=== PATIENT | male | born 1965 | race Caucasian/White ===

== ENCOUNTER → 2021-01-05 18:52 | Outpatient (CLI) | payer OTHER, SELFPAY ==
[2021-01-05 19:15] LABS: Basophils # 0.1 K/mm3 (0-0.2); Basophils % 1.1 % (0.1-2.0); Eosinophils # 0.2 K/mm3 (0.0-0.4); Eosinophils % 2.3 % (0.1-12.0); Hematocrit 52.8 % (42.0-52.0); Lymphocytes # 1.5 K/mm3 (0.7-4.5); Lymphocytes % 19.6 % (10-50); Mean Corpuscular HGB Conc 34.2 g/dL (31.8-35.4); Mean Corpuscular Hemoglobin 32.7 pg (27.0-31.2); Mean Corpuscular Volume 95.7 fl (80-94); Mean Platelet Volume 8.7 fl (7.4-10.4); Monocytes # 0.5 K/mm3 (0.1-1.0); Monocytes % 6.4 % (1.7-9.3); Neutrophils # 5.5 K/mm3 (1.8-7.8); Neutrophils % 70.8 % (37.0-80.0); Platelet Count 272 K/mm3 (142-424); Red Blood Count 5.52 M/mm3 (4.60-6.20); Red Cell Distribution Width 13.6 % (11.5-17.5); White Blood Count 7.7 K/mm3 (4.8-10.8)
[2021-01-05 19:33] LABS: Alanine Aminotransferase 72 U/L (12-78); Albumin Level 4.7 g/dl (3.5-5.0); Albumin/Globulin Ratio 1.4 (1.1-1.8); Alkaline Phosphatase 91 U/L (38-126); Aspartate Amino Transferase 50 U/L (17-59); Bilirubin,Total 0.6 mg/dl (0.2-1.3); Blood Urea Nitrogen 12 mg/dl (9-20); Calcium 9.5 mg/dl (8.4-10.2); Carbon Dioxide 25 mmol/L (22.0-30.0); Chloride 105 mmol/L (98-107); Chol/HDL Ratio 5.9 (1-3.5); Cholesterol 226 mg/dl (140-200); Estimated Glomerular Filt Rate 140 ml/min (>60); GFR (African American) 169 ML/MIN (>60); Globulin 3.3 g/dL (1.3-3.2); Glucose 112 mg/dl (74-100); HDL Cholesterol 38 mg/dl (40-60); Sodium 139 mmol/L (136-145); Triglycerides 227 mg/dl (30-150); VLDL Cholesterol 45 mg/dL (0-40)
[2021-01-05 19:44] LABS: Direct LDL Cholesterol 155.85 mg/dL (100-129)
[2021-01-05 19:50] LABS: Free T4 (Free Thyroxine) 1.03 ng/dl (0.78-2.19)
[2021-01-05 19:51] LABS: 25-OH Vitamin D, Total 39.4 ng/mL (30-100)
[2021-01-05 20:04] LABS: Thyroid Stimulating Hormone 1.55 uIU/mL (0.465-4.68)
== END ==
PROVIDERS: Visit Provider Emergency Medicine
DX: R53.83 Other fatigue (principal); E55.9 Vitamin D deficiency, unspecified; I10 Essential (primary) hypertension
CPT/HCPCS: 80053; 80061; 82306; 84439; 84443; 85025

== ENCOUNTER 2023-05-21 19:36 | Emergency (ER) | payer OTHER, SELFPAY ==
[2023-05-21] VITALS (12 sets, daily range): BP systolic 190–212; BP diastolic 118–134; PULSE 100–116; RESP 16–20; TEMP 36.8; O2SAT 90–95; BMI 36.0
--- NOTE | 2023-05-21 19:44 | PC.NURSE ---
swab obtained and sent to lab
[2023-05-21 19:48] LABS: Coronavirus 19, PCR Not Detected (NotDetected); Influenza B, PCR Not Detected (NotDetected)
--- NOTE | 2023-05-21 19:59 | HMH.EDGENADL ---
Discharge Plan Disposition Patient Disposition: Home, Self-Care Condition: Good Prescriptions Prescriptions: New amlodipine 10 mg tablet 10 mg PO DAILY Qty: 30 0RF No Action atorvastatin 10 mg tablet 10 mg PO HS Qty: 90 0RF amlodipine 10 mg tablet 10 mg PO QHS Qty: 90 0RF Referrals Follow up/Referrals: Michael Aldrich DO [Primary Care Provider] - See instructions Harshad Alaniz DO [Staff Physician] - See instructions Clinical Impressions Clinical Impression: Influenza A, Accelerated essential hypertension Stand Alone Forms Stand Alone Forms: Work/School Release Discharge ED Provider: Deloris Esquivel General Adult HPI <NEETA River - Last Filed: 05/21/23 22:04> General Chief complaint: Upper Respiratory Infection Stated complaint: cough, fever Time Seen by Provider: 05/21/23 19:45 Mode of Arrival: Family Vehicle Source of Information: Patient Limitations: No Limitations Description of Symptoms (Recalled from ER Triage Doc. by RN): 57 yo male presents cc of cough x 2 weeks; vss. emv 15. History of Present Illness HPI narrative: Patient presents for report of a nonproductive cough for approximately 7 to 10 days however he began developing a high fever today. He reports it was over 100 at home. He denies chest pain shortness of breath hemoptysis hematochezia melena nausea vomiting diarrhea. Initially patient significantly hypertensive on presentation however he is a former patient of Dr. Cabrales and has not establish care with a new PCP since Dr. Pak's stop seeing new patients. He was previously on amlodipine 10 mg once a day. Denies headache and essentially is asymptomatic according to him. Related Data Previous Rx's Medication Instructions Recorded amlodipine 10 mg tablet 10 mg PO QHS #90 tabs 05/11/21 atorvastatin 10 mg tablet 10 mg PO HS #90 tabs 05/11/21 amlodipine 10 mg tablet 10 mg PO DAILY #30 tabs 05/21/23 Allergies Allergy/AdvReac Type Severity Reaction Status Date / Time lisinopril AdvReac Intermediate Cough Verified 05/11/21 09:05 PFS <NEETA River - Last Filed: 05/21/23 22:04> FOR[facility]LY [facility], [facility] Disclaimer: The information contained in this section may have been updated after the patient was seen, as this information can be updated by other users. Social History Smoking Status: Unknown if ever smoked alcohol intake: current substance use type: denies use current occupational status: employed Travel in the last 8 weeks: None household members: family housing: house <NEETA River - Last Filed: 05/21/23 22:04> ROS Obtained: Yes Systems reviewed as appropriate & no additional complaints except as documented Physical Exam <NEETA River - Last Filed: 05/21/23 22:04> General General appearance: alert and in no apparent distress Head Head exam: atraumatic and normal inspection Eye Eye exam: Present normal appearance, PERRL and EOMI ENT ENT exam: Present normal exam, normal oropharynx and mucous membranes moist Neck Neck exam: Present normal inspection, full ROM and trachea midline; Absent lymphadenopathy Chest Chest inspection: Present normal inspection and symmetric chest wall rise Respiratory Respiratory exam: Present normal lung sounds bilaterally; Absent respiratory distress, wheezes or accessory muscle use Cardiovascular Cardiovascular exam: Present regular rate, normal rhythm, normal heart sounds, +S1 and +S2 Abdominal Exam Abdominal exam: Present soft and normal bowel sounds; Absent tenderness, guarding or rebound Extremities Exam Extremities exam: Present normal inspection and full ROM Neurological Exam Neurological exam: Present alert and oriented X3 Psychiatric Psychiatric exam: Present normal affect and normal mood Skin Skin exam: Present warm, dry and normal color Medical Decision Making <NEETA River - Last Filed: 05/21/23 22:04> Medical Records Medical records reviewed: Yes I reviewed the patient's medical records. Esvin Inquiry Pt receiving controlled substance: No Vital Signs: 05/21/23 19:44 05/21/23 21:53 05/21/23 19:45 Temperature 98.2 F 98.3 F Temperature Source Oral Oral Pulse Rate 100 H 113 H Pulse Rate [Right Brachial] 116 H Respiratory Rate 16 20 Blood Pressure 196/122 H 205/126 H Blood Pressure [Right Arm] 197/132 H Blood Pressure Mean 148 Blood Pressure Mean [Right Arm] 153 Blood Pressure Source Automatic Cuff Blood Pressure Source [Right Arm] Automatic Cuff Blood Pressure Position Sitting Blood Pressure Position [Right Arm] Sitting 02 Sat by Pulse Oximetry 95 92 L Oxygen Delivery Method Room Air Room Air 05/21/23 20:00 05/21/23 20:15 05/21/23 20:30 Temperature Temperature Source Pulse Rate 113 H 111 H 111 H Pulse Rate [Right Brachial] Respiratory Rate Blood Pressure 207/127 H 202/118 H 212/126 H Blood Pressure [Right Arm] Blood Pressure Mean 153 151 148 Blood Pressure Mean [Right Arm] Blood Pressure Source Blood Pressure Source [Right Arm] Blood Pressure Position Blood Pressure Position [Right Arm] 02 Sat by Pulse Oximetry 92 L 92 L 92 L Oxygen Delivery Method 05/21/23 20:45 05/21/23 21:00 05/21/23 21:15 Temperature Temperature Source Pulse Rate 107 H 109 H 109 H Pulse Rate [Right Brachial] Respiratory Rate Blood Pressure 190/130 H 203/134 H 190/124 H Blood Pressure [Right Arm] Blood Pressure Mean 147 154 148 Blood Pressure Mean [Right Arm] Blood Pressure Source Blood Pressure Source [Right Arm] Blood Pressure Position Blood Pressure Position [Right Arm] 02 Sat by Pulse Oximetry 91 L 90 L 90 L Oxygen Delivery Method 05/21/23 21:18 05/21/23 21:30 05/21/23 21:45 Temperature Temperature Source Pulse Rate 104 H 103 H 102 H Pulse Rate [Right Brachial] Respiratory Rate Blood Pressure 204/124 H 205/120 H 196/122 H Blood Pressure [Right Arm] Blood Pressure Mean 143 Blood Pressure Mean [Right Arm] Blood Pressure Source Blood Pressure Source [Right Arm] Blood Pressure Position Blood Pressure Position [Right Arm] 02 Sat by Pulse Oximetry 91 L 91 L 90 L Oxygen Delivery Method Lab Data Lab results reviewed: Yes I reviewed the patient's lab results. Lab Results 05/21/23 19:40: SARS-CoV-2 (PCR) Not detected, Influenza A Untype (PCR) Detected A, Influenza Type B (PCR) Not detected 05/21/23 20:23: WBC 7.1, RBC 5.11, Hgb 17.1, Hct 52.0, MCV 101.7 H, MCH 33.4 H, MCHC 32.9, RDW 13.6, Plt Count 198, MPV 7.9, Neut % (Auto) 70.6, Lymph % (Auto) 16.1, Aiken % (Auto) 9.5 H, Eos % (Auto) 2.5, Baso % (Auto) 1.2, Neut # (Auto) 5.0, Lymph # (Auto) 1.1, Aiken # (Auto) 0.7, Eos # (Auto) 0.2, Baso # (Auto) 0.1, Sodium 138, Potassium 3.6, Chloride 105, Carbon Dioxide 23, Anion Gap 13.6, BUN 11, Creatinine 0.80, Estimated Creat Clear 150, Estimated GFR 100, Est GFR ( Amer) 121, Glucose 103 H, Calcium 9.0 05/21/23 20:23 05/21/23 20:23 Orders (Tests/Meds): ED MEDICATIONS Discontinued Medications Generic Name Dose Route Start Last Admin Trade Name Geovani PRN Reason Stop Dose Admin Acetaminophen 1,000 mg 05/21/23 20:13 05/21/23 20:29 Acetaminophen 500mg Tab PO 05/21/23 20:14 1,000 mg ONCE ONE Administration Dexamethasone Sodium Phosphate 10 mg 05/21/23 20:13 05/21/23 20:28 Dexamethasone 4mg/Ml 1ml Vial IM 05/21/23 20:14 Not Given ONCE ONE Dexamethasone Sodium Phosphate 10 mg 05/21/23 20:26 05/21/23 20:29 Dexamethasone 4mg/Ml 1ml Vial IV 05/21/23 20:27 10 mg ONCE ONE Administration Ketorolac Tromethamine 30 mg 05/21/23 20:13 05/21/23 20:28 Ketorolac 30mg/Ml Vial IM 05/21/23 20:14 Not Given ONCE ONE Ketorolac Tromethamine 30 mg 05/21/23 20:28 05/21/23 20:30 Ketorolac 30mg/Ml Vial IV 05/21/23 20:29 30 mg ONCE ONE Administration ORDERS Category Date Time Status Chest XR -- portable [XR chest portable] Stat Exams 05/21/23 20:13 Completed BMP [Basic Metabolic Panel] Stat Lab 05/21/23 20:23 Completed CBC w/Auto Diff [Complete Blood Count Auto Diff] Stat Lab 05/21/23 20:23 Completed Rapid PCR Covid and Flu A/B Stat Lab 05/21/23 19:40 Completed Medical Decision Narrative: In summary patient is a 57-year-old male who presents to the emergency department for evaluation of cough and fever. Patient is hypertensive but asymptomatic upon arrival, and currently afebrile. Physical exam is nonfocal with no acute findings including normal breath sounds normal heart sounds clear and equal breath sounds without adventitious sounds no headache. Patient is a former client of Dr. Pak's and has not had refills of his hypertensive medication since his PCP stopped seeing patients and has not establish care with a new one. Additionally patient has been taking significant amounts of [id number] cold and flu preparations to try to treat his cough. Today he developed a fever that remains nonproductive.. Differential diagnosis includes hypertensive emergency versus therapeutic misadventure versus viral or bacterial respiratory infection. Initial workup will be conducted with hematologic labs chest x-ray flu and COVID swabs. Initial interventions include Tylenol Toradol Decadron. Initial workup reviewed by me shows normal CBC CMP without any derangements and is nonactionable. Normal interpretation of his plain film chest x-ray shows no acute process. His flu swab was positive for influenza A. Patient still remain asymptomatically hypertensive. I discussed with the patient possible options including admission for hypertensive control versus referral to a PCP and also for me refilling his amlodipine. Patient reported feeling comfortable with restarting his amlodipine as it was controlling it before. For now I will refer him to a local primary care provider and call him in a 30-day supply of his amlodipine. Patient verbalized understanding and agreement via shared decision making. Patient agreed to return to the emergency department if his blood pressure continues to remain high after initiation of amlodipine or as needed.. <Deloris Esquivel, DO - Last Filed: 05/22/23 00:02> Vital Signs: 05/21/23 19:44 05/21/23 21:53 05/21/23 19:45 Temperature 98.2 F 98.3 F Temperature Source Oral Oral Pulse Rate 100 H 113 H Pulse Rate [Right Brachial] 116 H Respiratory Rate 16 20 Blood Pressure 196/122 H 205/126 H Blood Pressure [Right Arm] 197/132 H Blood Pressure Mean 148 Blood Pressure Mean [Right Arm] 153 Blood Pressure Source Automatic Cuff Blood Pressure Source [Right Arm] Automatic Cuff Blood Pressure Position Sitting Blood Pressure Position [Right Arm] Sitting 02 Sat by Pulse Oximetry 95 92 L Oxygen Delivery Method Room Air Room Air 05/21/23 20:00 05/21/23 20:15 05/21/23 20:30 Temperature Temperature Source Pulse Rate 113 H 111 H 111 H Pulse Rate [Right Brachial] Respiratory Rate Blood Pressure 207/127 H 202/118 H 212/126 H Blood Pressure [Right Arm] Blood Pressure Mean 153 151 148 Blood Pressure Mean [Right Arm] Blood Pressure Source Blood Pressure Source [Right Arm] Blood Pressure Position Blood Pressure Position [Right Arm] 02 Sat by Pulse Oximetry 92 L 92 L 92 L Oxygen Delivery Method 05/21/23 20:45 05/21/23 21:00 05/21/23 21:15 Temperature Temperature Source Pulse Rate 107 H 109 H 109 H Pulse Rate [Right Brachial] Respiratory Rate Blood Pressure 190/130 H 203/134 H 190/124 H Blood Pressure [Right Arm] Blood Pressure Mean 147 154 148 Blood Pressure Mean [Right Arm] Blood Pressure Source Blood Pressure Source [Right Arm] Blood Pressure Position Blood Pressure Position [Right Arm] 02 Sat by Pulse Oximetry 91 L 90 L 90 L Oxygen Delivery Method 05/21/23 21:18 05/21/23 21:30 05/21/23 21:45 Temperature Temperature Source Pulse Rate 104 H 103 H 102 H Pulse Rate [Right Brachial] Respiratory Rate Blood Pressure 204/124 H 205/120 H 196/122 H Blood Pressure [Right Arm] Blood Pressure Mean 143 Blood Pressure Mean [Right Arm] Blood Pressure Source Blood Pressure Source [Right Arm] Blood Pressure Position Blood Pressure Position [Right Arm] 02 Sat by Pulse Oximetry 91 L 91 L 90 L Oxygen Delivery Method Lab Data Lab Results 05/21/23 19:40: SARS-CoV-2 (PCR) Not detected, Influenza A Untype (PCR) Detected A, Influenza Type B (PCR) Not detected 05/21/23 20:23: WBC 7.1, RBC 5.11, Hgb 17.1, Hct 52.0, MCV 101.7 H, MCH 33.4 H, MCHC 32.9, RDW 13.6, Plt Count 198, MPV 7.9, Neut % (Auto) 70.6, Lymph % (Auto) 16.1, Aiken % (Auto) 9.5 H, Eos % (Auto) 2.5, Baso % (Auto) 1.2, Neut # (Auto) 5.0, Lymph # (Auto) 1.1, Aiken # (Auto) 0.7, Eos # (Auto) 0.2, Baso # (Auto) 0.1, Sodium 138, Potassium 3.6, Chloride 105, Carbon Dioxide 23, Anion Gap 13.6, BUN 11, Creatinine 0.80, Estimated Creat Clear 150, Estimated GFR 100, Est GFR ( Amer) 121, Glucose 103 H, Calcium 9.0 Orders (Tests/Meds): ED MEDICATIONS Discontinued Medications Generic Name Dose Route Start Last Admin Trade Name Geovani PRN Reason Stop Dose Admin Acetaminophen 1,000 mg 05/21/23 20:13 05/21/23 20:29 Acetaminophen 500mg Tab PO 05/21/23 20:14 1,000 mg ONCE ONE Administration Dexamethasone Sodium Phosphate 10 mg 05/21/23 20:13 05/21/23 20:28 Dexamethasone 4mg/Ml 1ml Vial IM 05/21/23 20:14 Not Given ONCE ONE Dexamethasone Sodium Phosphate 10 mg 05/21/23 20:26 05/21/23 20:29 Dexamethasone 4mg/Ml 1ml Vial IV 05/21/23 20:27 10 mg ONCE ONE Administration Ketorolac Tromethamine 30 mg 05/21/23 20:13 05/21/23 20:28 Ketorolac 30mg/Ml Vial IM 05/21/23 20:14 Not Given ONCE ONE Ketorolac Tromethamine 30 mg 05/21/23 20:28 05/21/23 20:30 Ketorolac 30mg/Ml Vial IV 05/21/23 20:29 30 mg ONCE ONE Administration ORDERS Category Date Time Status Chest XR -- portable [XR chest portable] Stat Exams 05/21/23 20:13 Completed BMP [Basic Metabolic Panel] Stat Lab 05/21/23 20:23 Completed CBC w/Auto Diff [Complete Blood Count Auto Diff] Stat Lab 05/21/23 20:23 Completed Rapid PCR Covid and Flu A/B Stat Lab 05/21/23 19:40 Completed Medical Decision Narrative: In summary patient is a 57-year-old male who presents to the emergency department for evaluation of cough and fever. Patient is hypertensive but asymptomatic upon arrival, and currently afebrile. Physical exam is nonfocal with no acute findings including normal breath sounds normal heart sounds clear and equal breath sounds without adventitious sounds no headache. Patient is a former client of Dr. Pak'monica and has not had refills of his hypertensive medication since his PCP stopped seeing patients and has not establish care with a new one. Additionally patient has been taking significant amounts of [id number] cold and flu preparations to try to treat his cough. Today he developed a fever that remains nonproductive.. Differential diagnosis includes hypertensive emergency versus therapeutic misadventure versus viral or bacterial respiratory infection. Initial workup will be conducted with hematologic labs chest x-ray flu and COVID swabs. Initial interventions include Tylenol Toradol Decadron. Initial workup reviewed by me shows normal CBC CMP without any derangements and is nonactionable. Normal interpretation of his plain film chest x-ray shows no acute process. His flu swab was positive for influenza A. Patient still remain asymptomatically hypertensive. I discussed with the patient possible options including admission for hypertensive control versus referral to a PCP and also for me refilling his amlodipine. Patient reported feeling comfortable with restarting his amlodipine as it was controlling it before. For now I will refer him to a local primary care provider and call him in a 30-day supply of his amlodipine. Patient verbalized understanding and agreement via shared decision making. Patient agreed to return to the emergency department if his blood pressure continues to remain high after initiation of amlodipine or as needed.. I was consulted by the QUENTIN, and we discussed the complexity of the problems being addressed. I approved the treatment and management plan for this patient's care in the emergency department, thus performing a substantive portion of the medical decision making. Deloris Esquivel, DO Critical Care <NEETA River - Last Filed: 05/21/23 22:04> Critical Care Time Critical Care Time: No
--- NOTE | 2023-05-21 20:13 | XR_ITS ---
PROCEDURE INFORMATION: Exam: XR Chest Exam date and time: 05/21/2023 8:21 PM Age: 57 years old Clinical indication: Cough; Additional info: Cough for 7 days, fever TECHNIQUE: Imaging protocol: Radiologic exam of the chest. Views: 1 view. COMPARISON: ABDPELW/O CT ABD PELVIS W/O CONTRAST 01/20/2017 7:55 PM FINDINGS: Lungs: Mild bibasilar scarring or atelectasis. Lungs are otherwise clear. Pleural spaces: Unremarkable. No pleural effusion. No pneumothorax. Heart/Mediastinum: Unremarkable. No cardiomegaly. Bones/joints: Unremarkable. IMPRESSION: Bibasilar scarring or atelectasis. No other acute findings.
[2023-05-21] MEDS: DEXAMETHASONE 4MG/ML 1ML VIAL 10 MG IV (20:29)
[2023-05-21] MEDS: ACETAMINOPHEN 500MG TAB 1000 MG PO (20:29)
[2023-05-21] MEDS: KETOROLAC 30MG/ML VIAL 30 MG IV (20:30)
[2023-05-21 20:35] LABS: Influenza A, PCR Detected (NotDetected)
[2023-05-21 20:37] LABS: Basophils # 0.1 K/mm3 (0-0.2); Basophils % 1.2 % (0.1-2.0); Eosinophils # 0.2 K/mm3 (0.0-0.4); Eosinophils % 2.5 % (0.1-12.0); Hemoglobin 17.1 g/dL (14.1-18.0); Lymphocytes # 1.1 K/mm3 (0.7-4.5); Lymphocytes % 16.1 % (10-50); Mean Corpuscular HGB Conc 32.9 g/dL (31.8-35.4); Mean Corpuscular Hemoglobin 33.4 pg (27.0-31.2); Mean Corpuscular Volume 101.7 fl (80-94); Mean Platelet Volume 7.9 fl (7.4-10.4); Monocytes # 0.7 K/mm3 (0.1-1.0); Monocytes % 9.5 % (1.7-9.3); Neutrophils % 70.6 % (37.0-80.0); Platelet Count 198 K/mm3 (142-424); Red Blood Count 5.11 M/mm3 (4.60-6.20); Red Cell Distribution Width 13.6 % (11.5-17.5); White Blood Count 7.1 K/mm3 (4.8-10.8)
[2023-05-21 20:44] LABS: Anion Gap 13.6 mEq/L (5-15); Blood Urea Nitrogen 11 mg/dl (9-20); Carbon Dioxide 23 mmol/L (22.0-30.0); Chloride 105 mmol/L (98-107); Creatinine Clearance Estimated 150 mL/min (50-200); Estimated Glomerular Filt Rate 100 ml/min (>60); GFR (African American) 121 ML/MIN (>60); Glucose 103 mg/dl (74-100); Potassium 3.6 mmoL/L (3.5-5.1); Sodium 138 mmol/L (136-145)
--- NOTE | 2023-05-21 21:53 | PC.NURSE ---
PA Don aware of VS
== END 2023-05-21 21:54 | disposition home or self-care (01) ==
PROVIDERS: Physician Assistant; Emergency Provider Emergency Medicine; PCP Internal Medicine
DX: J10.1 Influenza due to other identified influenza virus with other respiratory manifestations (principal); R05.9 Cough, unspecified; R50.9 Fever, unspecified; I10 Essential (primary) hypertension
CPT/HCPCS: 71045; 80048; 85025; 87636; 96374; 96375; 99285

== ENCOUNTER 2024-02-18 12:17 | Outpatient (CLI) | payer BC, SELFPAY ==
[2024-02-18 19:07] LABS: Basophils # 0.1 K/mm3 (0-0.2); Eosinophils # 0.2 K/mm3 (0.0-0.4); Eosinophils % 2.3 % (0.1-12.0); Hematocrit 49.7 % (42.0-52.0); Hemoglobin 17.3 g/dL (14.1-18.0); Lymphocytes % 27.9 % (10-50); Mean Corpuscular HGB Conc 34.9 g/dL (31.8-35.4); Mean Corpuscular Hemoglobin 32.6 pg (27.0-31.2); Mean Corpuscular Volume 93.5 fl (80-94); Mean Platelet Volume 8.8 fl (7.4-10.4); Monocytes # 0.6 K/mm3 (0.1-1.0); Monocytes % 7.8 % (1.7-9.3); Neutrophils # 4.5 K/mm3 (1.8-7.8); Neutrophils % 61.1 % (37.0-80.0); Platelet Count 232 K/mm3 (142-424); Red Blood Count 5.31 M/mm3 (4.60-6.20); Red Cell Distribution Width 13.6 % (11.5-17.5); White Blood Count 7.3 K/mm3 (4.8-10.8)
[2024-02-18 20:12] LABS: Alanine Aminotransferase 59 U/L (12-78); Albumin Level 4.3 g/dl (3.5-5.0); Albumin/Globulin Ratio 1.7 (1.1-1.8); Alkaline Phosphatase 85 U/L (38-126); Aspartate Amino Transferase 37 U/L (17-59); Bilirubin,Total 0.7 mg/dl (0.2-1.3); Blood Urea Nitrogen 14 mg/dl (9-20); Calcium 9.3 mg/dl (8.4-10.2); Carbon Dioxide 23 mmol/L (22.0-30.0); Chloride 107 mmol/L (98-107); Chol/HDL Ratio 6.9 (1-3.5); Cholesterol 222 mg/dl (140-200); Estimated Glomerular Filt Rate 99 ml/min (>60); GFR (African American) 120 ML/MIN (>60); Globulin 2.6 g/dL (1.3-3.2); Glucose 106 mg/dl (74-100); HDL Cholesterol 32 mg/dl (40-60); Sodium 140 mmol/L (136-145); Total Protein,Serum 6.9 g/dl (6.3-8.2); Triglycerides 219 mg/dl (30-150); VLDL Cholesterol 44 mg/dL (0-40)
[2024-02-18 20:23] LABS: Direct LDL Cholesterol 169.42 mg/dL (100-129)
[2024-02-18 20:33] LABS: 25-OH Vitamin D, Total 21.1 ng/mL (30-100)
[2024-02-18 20:46] LABS: Thyroid Stimulating Hormone 3.24 uIU/mL (0.465-4.68)
[2024-02-18 21:40] LABS: HIV (1&2) Antibody Rapid NONREACTIVE (NONREACTIVE)
[2024-02-18 22:11] LABS: Hemoglobin A1C 5.6 % (4.0-6.0)
[2024-02-21 03:36] LABS: HCV Ab Non Reactive (Non Reactive)
[2024-03-02 18:18] LABS: Testosterone, Total, LC/MS 401 ng/dL (.)
== END 2024-02-18 23:59 | disposition home or self-care (01) ==
LOC: LAB.DROPOF 02-20 09:34
PROVIDERS: PCP Family Medicine; Visit Provider Family Medicine
DX: Z11.59 Encounter for screening for other viral diseases (principal); E78.5 Hyperlipidemia, unspecified; I10 Essential (primary) hypertension
CPT/HCPCS: 80050; 80053; 80061; 82306; 83036; 84403; 84443; 85025; 86803; 87389; G0103

== ENCOUNTER 2024-02-27 11:04 | Outpatient (CLI) | payer BC, SELFPAY ==
--- NOTE | 2024-02-27 11:09 | CA_ITS ---
APPROVED REPORT EXAM: Comprehensive 2D, Doppler, and color-flow Echocardiogram Blend Technician: Christine Merritt RDCS Ht: 5 ft 7 in Wt: 227lbs BSA: 2.13 BP: 177/109 mmHg Indications: SOA,CABRAL,EDEMA 2D Dimensions LA Volume 49.50 mL LA Volume Index 23.13 mL/m2 (M/F) 16-34 M-Mode Dimensions RVDd 2.78 cm (0.9-2.6) LA Diam 2.98 cm (1.9-4.0) LVDd 6.20 cm (3.5-5.7) LVDs 4.59 cm (3.5-5.7) IVSd 0.76 cm (0.6-1.1) PWd 0.93 cm (0.6-1.1) EF (Teich) 50.10% FS 26.00% EDV (Teich) 194.00 mL ESV (Teich) 96.80 mL LV Diastology E Decel Time 170 (160-240 msec) E/A Ratio 0.4 Mitral Valve MV E Max Sanjay. 37.0 (40-130 cm/s) MV A Velocity 83.0 (40-130 cm/s) E/A Ratio 0.45 MV PHT 50.0 ms Left Ventricle The left ventricle is normal size. The left ventricular systolic function is normal. The left ventricular ejection fraction is within the normal range. There is increased LV wall thickness. There is normal LV segmental wall motion. The left ventricular diastolic function is normal. LVEF is 55%. Right Ventricle The right ventricle is normal size. The right ventricular systolic function is normal. Atria The left atrium size is normal. The right atrium size is normal. There is no Doppler evidence of interatrial shunt. Aortic Valve The aortic valve opens well. There is no aortic valvular stenosis. Mild aortic regurgitation is present. Mitral Valve The mitral valve is normal in structure. No evidence of mitral valve stenosis. There is no mitral valve regurgitation noted. Tricuspid Valve Tricuspid valve is grossly normal in structure and function. Trace tricuspid regurgitation. There is insufficient TR jet to estimate RVSP. Pulmonic Valve The pulmonary valve is normal in structure. Trace pulmonic regurgitation. Great Vessels The aortic root is normal in size. The ascending aorta is not well visualized. IVC is normal in size and collapses >50% with inspiration. Pericardium There is no pericardial effusion. Other Information Study Quality: Fair Conclusion Normal biventricular systolic function. Mild AI. Electronically signed by : Jamila Perales MD 03/07/2024 16:30:06
--- NOTE | 2024-02-27 11:35 | XR_ITS ---
FINAL REPORT CLINICAL HISTORY: cough COMPARISON: None FINDINGS: Two views of the chest were obtained. The heart size and pulmonary vascularity are within normal limits. The mediastinum is normal. Mild atelectasis versus scarring is present in the lung bases. There is no pneumothorax. The bony thorax is intact. IMPRESSION: Mild atelectasis versus scar in the lung bases, otherwise no active chest disease. Reviewed, Interpreted and Dictated by Avery Soriano III, MD Transcribed by Laura Turner Authenticated and [facility]
== END 2024-02-27 23:59 | disposition home or self-care (01) ==
LOC: RT 11:04
PROVIDERS: PCP Family Medicine; Visit Provider Family Medicine
DX: I35.1 Nonrheumatic aortic (valve) insufficiency (principal); I10 Essential (primary) hypertension; R05.9 Cough, unspecified; R06.09 Other forms of dyspnea; R60.9 Edema, unspecified
CPT/HCPCS: 71046; 93306